=== PATIENT | male | born 1995 | race Caucasian/White ===

== ENCOUNTER 2017-12-06 16:04 | Emergency (ER) | payer OTHER ==
[~2017-12-06] VITALS: Ht 177.8 cm; Wt 81.7 kg
[~2017-12-06 16:04] MED LIST: CRUTCH4 USE; DIPH50 PO; FAMO20 PO; IBUP600 PO; NAPR500 PO; PERM5TC TOP; PRED20 PO
== END 2017-12-06 17:30 | disposition home or self-care (01) ==
LOC: ER 16:04
DX: S01.01XA Laceration without foreign body of scalp, initial encounter (principal); Z23 Encounter for immunization; F17.200 Nicotine dependence, unspecified, uncomplicated; W25.XXXA Contact with sharp glass, initial encounter
CPT/HCPCS: 90714

== ENCOUNTER 2018-02-09 17:36 | Emergency (ER) | payer OTHER ==
[~2018-02-09] VITALS: Ht 177.8 cm; Wt 77.1 kg
[~2018-02-09 17:36] MED LIST changes: +Monodox100 MG PO
[2018-02-09] MEDS ORDERED: Bactrim Ds Tab1 EACH PO (18:08)
== END 2018-02-09 18:14 | disposition home or self-care (01) ==
LOC: ER 17:36
DX: L03.116 Cellulitis of left lower limb (principal); L03.115 Cellulitis of right lower limb; Z79.2 Long term (current) use of antibiotics; F17.200 Nicotine dependence, unspecified, uncomplicated
CPT/HCPCS: 99283

== ENCOUNTER 2019-01-06 23:14 | Emergency (ER) | payer OTHER ==
[~2019-01-06] VITALS: Ht 175.3 cm; Wt 81.7 kg
[~2019-01-06 23:14] MED LIST changes: +Bactrim Ds Tab1 EACH PO
== END 2019-01-07 00:45 ==
LOC: ER 23:14
DX: S51.811A Laceration without foreign body of right forearm, initial encounter (principal); K86.89 Other specified diseases of pancreas; Y04.8XXA Assault by other bodily force, initial encounter; F17.200 Nicotine dependence, unspecified, uncomplicated
CPT/HCPCS: 12002; 36415; 70450; 71260; 72125; 74177; 90471; 90714; 96360; 99284-25; J7030; L0160; Q9967

== ENCOUNTER 2023-02-13 09:08 | Emergency (ER) | payer OTHER | END 2023-02-13 10:10 | disposition home or self-care (01) | LOC: ER 09:08 | DX: J02.0 Streptococcal pharyngitis (principal); R11.2 Nausea with vomiting, unspecified; J45.909 Unspecified asthma, uncomplicated; F17.210 Nicotine dependence, cigarettes, uncomplicated ==